=== PATIENT | female | born 1975 | race African-American/Black ===

== ENCOUNTER 2018-03-05 16:27 | Emergency (ER) | payer OTHER ==
[2018-03-05 16:32] VITALS: BP 153/85; PULSE 88; TEMP 98.4; BMI 37.8
[2018-03-05] MEDS ORDERED: KETOROLAC TROMETHAMINE 60 MG/2 ML VIAL IM ONE (16:37)
--- NOTE | 2018-03-05 16:44 | PDOC ---
Rapid Medical Evaluation Chief Complaint: Chest Pain Time Seen by Provider: 03/05/18 16:37 Medical Evaluation: Allergies Allergy/AdvReac Type Severity Reaction Status Date / Time No Known Allergies Allergy Verified 03/05/18 16:32 Vital Signs Temp Pulse Resp BP Pulse Ox 98.4 F 88 18 153/85 99 03/05/18 16:30 03/05/18 16:30 03/05/18 16:30 03/05/18 16:30 03/05/18 16:30 03/05/18 16:38 The patient complaining of: generalized headache x 2 weeks, no fever, neck pain , or visual changes, pt also states midsternal aching to center of chest x 2-3 days worsened with movement The patient on brief exam: tender to midsternal region at 4th rib, lcta, vss The patient was ordered for ekg, tylenol, labs The patient will proceed to the ED Discharge Disposition - Diagnosis Chest pain - Referrals - Patient Instructions - Post Discharge Activity
[2018-03-05] MEDS ORDERED: KETOROLAC TROMETHAMINE 60 MG/2 ML VIAL ONE (17:13)
--- NOTE | 2018-03-05 17:27 | PDOC ---
History of Present Illness - General Chief Complaint: Chest Pain Stated Complaint: CHEST PAIN Time Seen by Provider: 03/05/18 16:37 - History of Present Illness Initial Comments: 03/05/18 17:22 42 yo F with no significant pmh who p/w chest pain and dizziness. Patient reports 4 days of retrosternal, burning sensation, at rest, with intermittent, sharp radiation to left sided chest , resolving spontaneously prior to arrival ( lasting for seconds). Pain reproducible with touch, but not exacerbated with PO/food intake. Pain not relieved with OTC Ibuprofen 800 mg. Normal daily bowel movements, with absent BPR. Patient also endorses 1 week of intermittent "spinning sensation of the room, exacerbated by positional change while in bed, and resolves spontaneously. + Intermittent nightly cough. Patient denies ALMEIDA, LOC, tinnitus, hearing loss, vision change, N/V,back pain, F, C, cough, orthopnea, wheezing, SOB, urinary complaints, abdominal pain, diarrhea , constipation, BPR, lightheadedness, weakness, sensory changes. PMHx: as noted above. Denies GI f/u, endoscopy , or colonsocpy. Deniers h/o abdominal surgery. Denies ACS/AZ, cardiac stent placement, CABG, abnml stress testing. ROS: as noted SHx: Denies Etoh, tobacco, IVDA. Denies caffeine use. Allergies: NKDA Past History - Past Medical History Allergies/Adverse Reactions: Allergies Allergy/AdvReac Type Severity Reaction Status Date / Time No Known Allergies Allergy Verified 03/05/18 16:32 Home Medications: Ambulatory Orders Meclizine HCl [Antivert -] 12.5 mg PO TID #21 tablet 03/05/18 Ranitidine [Zantac -] 150 mg PO DAILY #21 tablet 03/05/18 COPD: No Other medical history: ARTHRITS - Suicide/Smoking/Psychosocial Hx Smoking History: Never smoked Hx Alcohol Use: Yes (OCCASIONALLY) Drug/Substance Use Hx: No Review of Systems - Review of Systems Comments:: 03/05/18 17:25 GENERAL/CONSTITUTIONAL: No fever or chills. No weakness. HEAD, EYES, EARS, NOSE AND THROAT: No change in vision. No ear pain or discharge. No sore throat. CARDIOVASCULAR: + chest pain. No shortness of breath RESPIRATORY: No cough, wheezing, or hemoptysis. GASTROINTESTINAL: No nausea, vomiting, diarrhea or constipation. GENITOURINARY: No dysuria, frequency, or change in urination. MUSCULOSKELETAL: No joint or muscle swelling or pain. No neck or back pain. SKIN: No rash NEUROLOGIC:+ Vertigo. No headache, loss of consciousness, or change in strength/ sensation. ENDOCRINE: No increased thirst. No abnormal weight change HEMATOLOGIC/LYMPHATIC: No anemia, easy bleeding, or history of blood clots. ALLERGIC/IMMUNOLOGIC: No hives or skin allergy. *Physical Exam - Vital Signs Last Vital Signs Temp Pulse Resp BP Pulse Ox 98.4 F 88 18 153/85 99 03/05/18 16:30 03/05/18 16:30 03/05/18 16:30 03/05/18 16:30 03/05/18 16:30 - Physical Exam Comments: 03/05/18 17:26 GENERAL: Awake, alert, and fully oriented, in no acute distress HEAD: No signs of trauma, normocephalic, atraumatic EYES: PERRLA, EOMI, sclera anicteric, conjunctiva clear ENT: Auricles normal inspection, hearing grossly normal, nares patent, oropharynx clear without exudates. Moist mucosa NECK: Normal ROM, supple, no lymphadenopathy, JVD, or masses LUNGS: No distress, speaks full sentences, clear to auscultation bilaterally HEART: Regular rate and rhythm, normal S1 and S2, no murmurs, rubs or gallops, peripheral pulses normal and equal bilaterally. ABDOMEN: + epigatsirc and mild RUQ ttp. Soft, normoactive bowel sounds. No guarding, no rebound. No masses. Neg CVA ttp. EXTREMITIES : Normal inspection, Normal range of motion, no edema. No clubbing or cyanosis. NEUROLOGICAL: + Reproducible "spinning sensation" with lateral head movement. Cranial nerves II through XII grossly intact. Normal speech, normal gait, no focal sensorimotor deficits. Neg nystagmus, and nml LAMBERTO,HTS. Absent dysmetria on FTN. SKIN: Warm, Dry, normal turgor, no rashes or lesions noted ED Treatment Course - LABORATORY CBC & Chemistry Diagram: 03/05/18 17:00 03/05/18 17:00 Medical Decision Making - Medical Decision Making 03/05/18 17:56 42 yo F with no significant pmh who p/w epigastric pain and dizziness "spinning sensation". VSS, AF. ACS/AZ r/o. PERC Neg PE. + Epigastirc and RUQ ttp. Possible esophagitis, gastritis, biliary pathology. Low suspicion PUD, AAA, urinary pathiology, appendicitis, colitis, diverticulitis. Patient also with reproducible "dizziness" described as spinning on lateral head movement, otherwise neurologically intact. Likely peripheral vs. central vertigo. Likely BPPV. Ed Course: CBC, CMP, Lipase, Cardiac, HCG EKG, CXR Meclizine, Maloox, Ranitidine, Carafate. 03/05/18 18:56 CBC,CMP: Unremarkable UA: Neg 03/05/18 18:59 Meclizine and ranitidine sent to pharmacy Symptoms improved 03/05/18 19:41 EKG: NSR with absent MOOSE, STD,or TWI. Normal axis and interval duration. 03/05/18 20:41 Bedside RUQ U/S: Unremarkable. No acute choleyctsitis stable for d/c with return precautions. advised to f/u with PMD and GI *DC/Admit/Observation/Transfer Diagnosis at time of Disposition: Vertigo, Epigastric pain Chest pain Qualifiers: Chest pain type: unspecified Qualified Code(s): R07.9 - Chest pain, unspecified - Discharge Dispostion Condition at time of disposition: Stable Decision to Admit order: No - Prescriptions Prescriptions: Meclizine HCl [Antivert -] 12.5 mg PO TID #21 tablet Ranitidine [Zantac -] 150 mg PO DAILY #21 tablet - Referrals Referrals: Sariah England [Primary Care Provider] - James Ewing MD [Staff Physician] - - Patient Instructions Printed Discharge Instructions: Benign Paroxysmal Positional Vertigo, DI for Atypical Chest Pain Additional Instructions: Please return to the emergency department with any new or worsening symptoms or concerns. Please follow up with your primary care physician within 72 hours. Please follow up with gastroenterology within one week. Please take pepcid daily and meclizine as needed for symptoms. - Post Discharge Activity - Attestations Physician Attestion: 03/05/18 17:27 I attest to the information provided in this note.
[2018-03-05 17:42] LABS: BASO % 0.9 % (0-2.0); EOS % 2.6 % (0-4.5); HEMATOCRIT 41.9 % (32.4-45.2); HEMOGLOBIN 13.4 GM/dL (10.7-15.3); MCH 26.6 pg (25.7-33.7); MEAN CELL VOLUME 83.3 fl (80-96); MONO % 7.8 % (3.8-10.2); NEUT % 64.7 % (42.8-82.8); PLATELET COUNT 281 K/MM3 (134-434); RBC 5.03 M/mm3 (3.60-5.2); RDW 14.4 % (11.6-15.6); WHITE BLOOD COUNT 7.7 K/mm3 (4.0-10.0)
[2018-03-05] MEDS ORDERED: RANITIDINE HCL 150 MG TABLET (FP) PO ONE (17:44)
[2018-03-05] MEDS ORDERED: SUCRALFATE 1 GM TABLET (FP) PO ONE (17:44)
[2018-03-05] MEDS ORDERED: MECLIZINE HCL 25 MG TABLET (FP) PO ONE (17:44)
[2018-03-05] MEDS ORDERED: MAG HYDROX/AL HYDROX/SIMETH 30 ML UNIT-DOSE CUP PO ONE (17:44)
[2018-03-05] MEDS ORDERED: MECLIZINE HCL 25 MG TABLET (FP) ONE (17:50)
[2018-03-05] MEDS ORDERED: RANITIDINE HCL 150 MG TABLET (FP) ONE (17:50)
[2018-03-05 17:51] LABS: ALBUMIN 3.8 g/dl (3.4-5.0); ALK PHOS 50 U/L (45-117); ANION GAP 7 MMOL/L (8-16); BILIRUBIN,TOTAL 0.4 mg/dL (0.2-1.0); BLOOD UREA NITROGEN 13 mg/dL (7-18); CALCIUM 9.5 mg/dL (8.5-10.1); CHLORIDE 105 mmol/L (98-107); CO2 29 mmol/L (21-32); CREATININE 0.7 mg/dL (0.55-1.02); GLUCOSE,RANDOM 84 mg/dL (74-106); POTASSIUM 4.1 mmol/L (3.5-5.1); SGOT/AST 15 U/L (15-37); SGPT/ALT 25 U/L (12-78); SODIUM 141 mmol/L (136-145); TOT PROT 8.2 g/dl (6.4-8.2)
[2018-03-05] MEDS ORDERED: MAG HYDROX/AL HYDROX/SIMETH 30 ML UNIT-DOSE CUP ONE (17:51)
[2018-03-05] MEDS ORDERED: SUCRALFATE 1 GM TABLET (FP) ONE (17:51)
--- NOTE | 2018-03-05 18:08 | PDOC ---
Attending Attestation - HPI HPI: 03/05/18 18:53 Patient is a 42 year old female with no significant past medical history who presents to the ED with complaints of chest pain that she states began earlier this week. Patient reports experiencing chest pain that she states is a midsternal non radiating burning pain. She reports experiencing associated symptoms of dizziness stating it feels like the room spinning that she states is increased at night when she sleeps. Denies nausea, vomiting. Denies contact with sick individuals, out of state travelling. Denies dysuria, hematuria. Denies constipation, diarrhea. Denies any other symptoms. Allergies: None Social history: Lives with son. No alcohol. No illicit drugs. No smoking. Surgical history: None PMD: Dr. England - Physicial Exam PE: 03/05/18 18:53 GENERAL: Awake, alert, and fully oriented, in no acute distress HEAD: No signs of trauma EYES: PERRLA, EOMI, sclera anicteric, conjunctiva clear ENT: Auricles normal inspection, hearing grossly normal, nares patent, oropharynx clear without exudates. Moist mucosa NECK: Normal ROM, supple, no lymphadenopathy, JVD, or masses LUNGS: Breath sounds equal, clear to auscultation bilaterally. No wheezes, and no crackles HEART: +Mild epigastric pain to palpation. +chest wall pain to palpation. Regular rate and rhythm, normal S1 and S2, no murmurs, rubs or gallops ABDOMEN: +Right upper quadrant pain. Soft, normoactive bowel sounds. No guarding, no rebound. No masses EXTREMITIES: Normal range of motion, no edema. No clubbing or cyanosis. No cords, erythema, or tenderness NEUROLOGICAL: Cranial nerves II through XII grossly intact. Normal speech, normal gait SKIN: Warm, Dry, normal turgor, no rashes or lesions noted. <Cole Howard - Last Filed: 03/05/18 18:53> - Resident Resident Name: Fransisco Trejo - ED Attending Attestation I have performed the following: I have examined & evaluated the patient, The case was reviewed & discussed with the resident, I agree w/resident's findings & plan, Exceptions are as noted - Medical Decision Making 03/05/18 18:06 I, Dr. Flower Rendon, DO, attest that this document has been prepared under my direction and personally reviewed by me in its entirety. I further attest, that it accurately reflects all work, treatment, procedures and medical decision -making performed by me. 03/05/18 18:06 a/p: 42yo female with burning sensation from epigastric region to chest, also with vertigo this week -no f/c -no n/v -has been eating and drinking -concern for peripheral vertigo and for gastritis -will send labs, ekg, cxr, bedside RUQ ultrasound -will medicate and reassess -pt is nontoxic in appearance -anterior chest wall ttp -no rashes -nof/c -ambulates with a steady gait -will monitor, medicate and reassess 03/05/18 19:51 cxr clear 03/05/18 20:46 RUQ ultrasound without gallstones, no gb wall thickening, no dilated cbd. neg sono murphykwame 03/05/18 20:47 pt feeling better, stable for d/c to home <Flower Rendon - Last Filed: 03/05/18 20:47> Heart Score/ECG Review - ECG Intrepretation Comment:: 03/05/18 18:06 sinus at 78, nl axis, nl interval, no acute st/t wave findings <Flower Rendon - Last Filed: 03/05/18 20:47>
--- NOTE | 2018-03-09 14:12 | EKG ---
Test Reason : Blood Pressure : / mmHG Vent. Rate : 078 BPM Atrial Rate : 078 BPM P-R Int : 140 ms QRS Dur : 078 ms QT Int : 348 ms P-R-T Axes : 056 052 048 degrees QTc Int : 396 ms NORMAL SINUS RHYTHM NORMAL ECG NO PREVIOUS ECGS AVAILABLE Confirmed by KATI DEGROOT MD ([id number]) on 03/09/2018 2:11:37 PM Referred By: Confirmed By:KATI DEGROOT MD
== END 2018-03-05 20:56 | disposition home or self-care (01) ==
LOC: JER 16:27
PROC: 3E0233Z Introduction of Anti-inflammatory into Muscle, Percutaneous Approach (ICD-10-PCS; principal; 2018-03-05)
DX: R07.89 Other chest pain (principal); R10.13 Epigastric pain; R42 Dizziness and giddiness
CPT/HCPCS: 36415; 71045-TC-FY; 80053; 82550; 83690; 84484; 84703; 85025; 93005; 93010; 99283-25

== ENCOUNTER 2020-12-10 23:47 | Emergency (ER) | payer OTHER ==
[2020-12-10 23:59] VITALS: BP 141/84; PULSE 100; TEMP 99.1; BMI 35.9
[2020-12-11] MEDS ORDERED: MAG HYDROX/AL HYDROX/SIMETH 30 ML UNIT-DOSE CUP PO ONE (00:16)
[2020-12-11] MEDS ORDERED: FAMOTIDINE 20 MG/50 ML IVPB 20 MG/50 ML MG IVPB ONE ×2 (00:16→00:20)
[2020-12-11] MEDS ORDERED: ONDANSETRON 4 MG/2 ML VIAL IVPUSH ONE (00:16)
[2020-12-11] MEDS ORDERED: SODIUM CHLORIDE 0.9% 500 ML INFUS.BAG IV ONE ×2 (00:16→02:21)
[2020-12-11] MEDS ORDERED: ONDANSETRON 4 MG/2 ML VIAL ONE ×2 (00:20→00:23)
[2020-12-11] MEDS ORDERED: MAG HYDROX/AL HYDROX/SIMETH 30 ML UNIT-DOSE CUP ONE (00:20)
[2020-12-11 00:47] LABS: BASO % 0.4 % (0-2.0); HEMATOCRIT 43.9 % (32.4-45.2); HEMOGLOBIN 14.6 GM/dL (10.7-15.3); LYMPH % 30.3 % (8-40); MCH 27.4 pg (25.7-33.7); MCHC 33.3 g/dl (32.0-36.0); MEAN CELL VOLUME 82.2 fl (80-96); MEAN PLT VOLUME 10.5 fl (7.5-11.1); MONO % 6.6 % (3.8-10.2); NEUT % 62.7 % (42.8-82.8); PLATELET COUNT 175 K/MM3 (134-434); RBC 5.34 M/mm3 (3.60-5.2); RDW 14.3 % (11.6-15.6); WHITE BLOOD COUNT 3.5 K/mm3 (4.0-10.0)
[2020-12-11 01:07] LABS: CHLORIDE 97 mmol/L (98-107); SODIUM 133 mmol/L (136-145)
[2020-12-11 01:09] LABS: ALBUMIN 2.6 g/dl (3.4-5.0)
[2020-12-11 01:10] LABS: ANION GAP 8 MMOL/L (8-16); CALCIUM 7.7 mg/dL (8.5-10.1); CO2 28 mmol/L (21-32); GLUCOSE,RANDOM 118 mg/dL (74-106); MAGNESIUM 1.8 mg/dL (1.8-2.4)
[2020-12-11 01:12] LABS: LIPASE 95 U/L (73-393)
[2020-12-11] MEDS ORDERED: POTASSIUM CHLORIDE TABS 20 MEQ TABLET.ER (FP) PO ONE ×2 (01:12→01:21)
[2020-12-11 01:13] LABS: SGOT/AST 99 U/L (15-37); SGPT/ALT 69 U/L (13-61)
[2020-12-11 01:16] LABS: ALK PHOS 51 U/L (45-117); BILIRUBIN,TOTAL 0.4 mg/dL (0.2-1); TOT PROT 7.1 g/dl (6.4-8.2)
[2020-12-11] MEDS ORDERED: ACETAMINOPHEN 1000 MG/100 ML VIAL (NON FORMULARY) IVPB ONE (02:20)
[2020-12-11] MEDS ORDERED: ACETAMINOPHEN INJECTION 100 ML IVPB ONE (02:45)
== END 2020-12-11 05:05 | disposition home or self-care (01) ==
LOC: JER 23:47
PROC: 3E0333Z Introduction of Anti-inflammatory into Peripheral Vein, Percutaneous Approach (ICD-10-PCS; principal; 2020-12-10)
PROC: 3E033GC Introduction of Other Therapeutic Substance into Peripheral Vein, Percutaneous Approach (ICD-10-PCS; 2020-12-10)
PROC: 3E033GC Introduction of Other Therapeutic Substance into Peripheral Vein, Percutaneous Approach (ICD-10-PCS; 2020-12-10)
DX: R10.13 Epigastric pain (principal)
CPT/HCPCS: 36415; 71045-TC-FY; 80053; 83690; 83735; 84484; 84703; 85025; 93005; 93010; 99285-25; C9803; J0131; U0003; U0005

== ENCOUNTER 2020-12-12 20:14 | Inpatient (IN) | payer OTHER ==
[2020-12-12] MEDS ORDERED: FAMOTIDINE 20 MG/50 ML IVPB 20 MG/50 ML MG IVPB ONE ×2 (20:44→20:51)
[2020-12-12] MEDS ORDERED: ONDANSETRON 4 MG/2 ML VIAL IVPUSH ONE (20:44)
[2020-12-12] MEDS ORDERED: SODIUM CHLORIDE 0.9% 500 ML INFUS.BAG IV ONE ×2 (20:44→21:33)
[2020-12-12] MEDS ORDERED: ONDANSETRON 4 MG/2 ML VIAL ONE (20:51)
[2020-12-12 21:18] LABS: BASO % 0.2 % (0-2.0); HEMATOCRIT 50.2 % (32.4-45.2); HEMOGLOBIN 16.5 GM/dL (10.7-15.3); MCH 27.2 pg (25.7-33.7); MCHC 32.8 g/dl (32.0-36.0); MEAN CELL VOLUME 82.9 fl (80-96); MEAN PLT VOLUME 9.7 fl (7.5-11.1); MONO % 11.5 % (3.8-10.2); NEUT % 67.3 % (42.8-82.8); PLATELET COUNT 244 K/MM3 (134-434); RBC 6.05 M/mm3 (3.60-5.2); RDW 14.1 % (11.6-15.6)
[2020-12-12 21:23] LABS: CHLORIDE 99 mmol/L (98-107); SODIUM 132 mmol/L (136-145)
[2020-12-12 21:25] LABS: CALCIUM 7.2 mg/dL (8.5-10.1)
[2020-12-12 21:26] LABS: ANION GAP 9 MMOL/L (8-16); BLOOD UREA NITROGEN 22.2 mg/dL (7-18); CO2 24 mmol/L (21-32); GLUCOSE,RANDOM 116 mg/dL (74-106); LIPASE 125 U/L (73-393)
[2020-12-12 21:28] LABS: SGPT/ALT 64 U/L (13-61)
[2020-12-12 21:29] LABS: CREATININE 2.3 mg/dL (0.55-1.3); SGOT/AST 182 U/L (15-37)
[2020-12-12 21:30] LABS: BILIRUBIN,TOTAL 0.2 mg/dL (0.2-1); TOT PROT 5.5 g/dl (6.4-8.2)
[2020-12-12] MEDS ORDERED: LACTATED RINGERS SOLUTION 1000 ML INFUS.BAG IV ONE (21:30)
[2020-12-12 21:31] LABS: ALK PHOS 59 U/L (45-117)
[2020-12-12 22:58] LABS: ALBUMIN 1.1 g/dl (3.4-5.0)
[2020-12-12 23:40] LABS: EPI CELLS >36 /uL (0-25.1); HYALINE CASTS 8 /uL (0-3.1); URINE APPEARANCE CLOUDY; URINE BACTERIA 429 /uL (0-1359); URINE BILIRUBIN NEGATIVE (NEGATIVE); URINE COLOR YELLOW; URINE GLUCOSE (UA) TRACE (NEGATIVE); URINE KETONE TRACE (NEGATIVE); URINE LEUK ESTERASE NEGATIVE (NEGATIVE); URINE NITRITE NEGATIVE (NEGATIVE); URINE PROTEIN 4+ (NEGATIVE); URINE RBC 13 /uL (0-23.9); URINE WBC 41 /uL (0-25.8)
[2020-12-13] MEDS ORDERED: morphine CARPU-JECT 2 MG/1 ML DISP.SYRIN IVPUSH PRN (01:25)
[2020-12-13] MEDS ORDERED: SODIUM CHLORIDE 1,000 ML IV SCH (01:30)
[2020-12-13] MEDS ORDERED: ALBUTEROL SO4 HFA INHALER IH PRN (02:10)
[2020-12-13] MEDS ORDERED: ONDANSETRON 4 MG/2 ML VIAL IVPUSH PRN (02:15)
[2020-12-13] MEDS: MORPHINE SULFATE 2 MG/ML VIAL IVPUSH PRN ×3 (02:23→18:30)
[2020-12-13 03:25] LABS: EPI CELLS >36 /uL (0-25.1); HYALINE CASTS 15 /uL (0-3.1); URINE APPEARANCE TURBID; URINE BACTERIA 1192 /uL (0-1359); URINE BILIRUBIN NEGATIVE (NEGATIVE); URINE COLOR DK YELLOW; URINE GLUCOSE (UA) TRACE (NEGATIVE); URINE KETONE TRACE (NEGATIVE); URINE LEUK ESTERASE NEGATIVE (NEGATIVE); URINE NITRITE NEGATIVE (NEGATIVE); URINE PROTEIN 4+ (NEGATIVE); URINE RBC 13 /uL (0-23.9)
[2020-12-13 05:16] LABS: URINE WBC 93.5 /uL (0-25.8)
[2020-12-13] MEDS: HEPARIN NA (PORCINE) 5,000 UNITS/ML 1ML VIAL SQ SCH ×2 (06:13→14:25)
[2020-12-13 06:21] LABS: HEMOGLOBIN 15.9 GM/dL (10.7-15.3); MCH 27.2 pg (25.7-33.7); MCHC 33.2 g/dl (32.0-36.0); MEAN CELL VOLUME 82.1 fl (80-96); MEAN PLT VOLUME 9.4 fl (7.5-11.1); PLATELET COUNT 191 K/MM3 (134-434); RBC 5.85 M/mm3 (3.60-5.2); RDW 14.5 % (11.6-15.6); WHITE BLOOD COUNT 3.9 K/mm3 (4.0-10.0)
[2020-12-13 06:33] LABS: CHLORIDE 104 mmol/L (98-107); SODIUM 136 mmol/L (136-145)
[2020-12-13 06:36] LABS: ALBUMIN 1.2 g/dl (3.4-5.0); ANION GAP 8 MMOL/L (8-16); BLOOD UREA NITROGEN 26.5 mg/dL (7-18); CO2 24 mmol/L (21-32); GLUCOSE,RANDOM 100 mg/dL (74-106)
[2020-12-13 06:38] LABS: PHOSPHOROUS 3.8 mg/dL (2.5-4.9)
[2020-12-13 06:39] LABS: CREATININE 2.4 mg/dL (0.55-1.3); SGOT/AST 187 U/L (15-37); SGPT/ALT 72 U/L (13-61)
[2020-12-13 06:40] LABS: BILIRUBIN,TOTAL 0.2 mg/dL (0.2-1); TOT PROT 5.2 g/dl (6.4-8.2)
[2020-12-13 06:41] LABS: ALK PHOS 53 U/L (45-117)
[2020-12-13 06:43] LABS: CALCIUM 6.6 mg/dL (8.5-10.1)
[2020-12-13 15:26] LABS: BASO % 0.3 % (0-2.0); HEMATOCRIT 44.2 % (32.4-45.2); HEMOGLOBIN 14.6 GM/dL (10.7-15.3); LYMPH % 26.4 % (8-40); MCH 27.3 pg (25.7-33.7); MCHC 33.2 g/dl (32.0-36.0); MEAN CELL VOLUME 82.3 fl (80-96); MEAN PLT VOLUME 9.1 fl (7.5-11.1); MONO % 12.4 % (3.8-10.2); NEUT % 60.9 % (42.8-82.8); PLATELET COUNT 201 K/MM3 (134-434); RBC 5.37 M/mm3 (3.60-5.2); RDW 14.6 % (11.6-15.6); WHITE BLOOD COUNT 4.2 K/mm3 (4.0-10.0)
[2020-12-13 15:43] LABS: CHLORIDE 104 mmol/L (98-107); SODIUM 136 mmol/L (136-145)
[2020-12-13] MEDS ORDERED: REMDESIVIR 200 MG in SODIUM CHLORIDE 250 ML IVPB ONE (16:00)
[2020-12-13 16:09] LABS: ANION GAP 8 MMOL/L (8-16); BLOOD UREA NITROGEN 31.7 mg/dL (7-18); CO2 23 mmol/L (21-32)
[2020-12-13 16:10] LABS: GLUCOSE,RANDOM 99 mg/dL (74-106)
[2020-12-13 16:12] LABS: SGPT/ALT 73 U/L (13-61)
[2020-12-13 16:13] LABS: CREATININE 2.9 mg/dL (0.55-1.3); SGOT/AST 173 U/L (15-37)
[2020-12-13 16:14] LABS: BILIRUBIN,TOTAL 0.3 mg/dL (0.2-1); TOT PROT 4.5 g/dl (6.4-8.2)
[2020-12-13 16:15] LABS: ALK PHOS 46 U/L (45-117)
[2020-12-13 16:27] LABS: CALCIUM 6.6 mg/dL (8.5-10.1)
[2020-12-13] MEDS: DEXAMETHASONE SOD PHOSPHATE 10 MG/1 ML VIAL IVPUSH SCH (16:36)
[2020-12-13] MEDS: SODIUM CHLORIDE 1,000 ML IV SCH (16:37)
[2020-12-13 16:54] LABS: EPI CELLS >36 /uL (0-25.1); HYALINE CASTS 28 /uL (0-3.1); URINE APPEARANCE TURBID; URINE BACTERIA 44 /uL (0-1359); URINE BILIRUBIN NEGATIVE (NEGATIVE); URINE COLOR YELLOW; URINE GLUCOSE (UA) NEGATIVE (NEGATIVE); URINE KETONE TRACE (NEGATIVE); URINE LEUK ESTERASE NEGATIVE (NEGATIVE); URINE NITRITE NEGATIVE (NEGATIVE); URINE PROTEIN 4+ (NEGATIVE); URINE RBC 60 /uL (0-23.9)
[2020-12-13 17:40] LABS: URINE WBC 160.5 /uL (0-25.8)
[2020-12-13] MEDS ORDERED: ENOXAPARIN NA (PORCINE) 60 MG/0.6 ML DISP.SYRIN SQ ONE (21:59)
[2020-12-13] MEDS ORDERED: ENOXAPARIN NA (PORCINE) 80 MG/0.8 ML DISP.SYRIN SQ ONE (21:59)
[2020-12-13] MEDS ORDERED: ENOXAPARIN 80 MG, ENOXAPARIN 60 MG SQ SCH (22:00)
[2020-12-13] MEDS ORDERED: ENOXAPARIN NA (PORCINE) 120 MG/0.8 ML DISP.SYRIN SQ SCH ×3 (22:00)
[2020-12-14] MEDS: MORPHINE SULFATE 2 MG/ML VIAL IVPUSH PRN ×2 (06:46→20:10)
[2020-12-14 08:13] LABS: MAGNESIUM 2.4 mg/dL (1.8-2.4)
[2020-12-14 08:16] LABS: PHOSPHOROUS 4.6 mg/dL (2.5-4.9)
[2020-12-14] MEDS ORDERED: ENOXAPARIN NA (PORCINE) 60 MG/0.6 ML DISP.SYRIN SQ ONE ×2 (09:31→09:32)
[2020-12-14] MEDS ORDERED: ENOXAPARIN NA (PORCINE) 80 MG/0.8 ML DISP.SYRIN SQ ONE ×2 (09:32)
[2020-12-14] MEDS: DEXAMETHASONE SOD PHOSPHATE 10 MG/1 ML VIAL IVPUSH SCH (09:36)
[2020-12-14] MEDS ORDERED: ENOXAPARIN 80 MG, ENOXAPARIN 60 MG SQ SCH (10:00)
[2020-12-14] MEDS: FAMOTIDINE 20 MG TABLET PO SCH ×2 (10:33→21:39)
[2020-12-14] MEDS ORDERED: PT OWN MED DRAWER 7, Y5N ONE (15:36)
[2020-12-14] MEDS: REMDESIVIR 100 MG in SODIUM CHLORIDE 250 ML IVPB SCH (15:39)
[2020-12-14] MEDS: PANTOPRAZOLE 40 MG TABLET PO SCH (16:20)
[2020-12-14] MEDS: SODIUM CHLORIDE 1,000 ML IV SCH (16:26)
[2020-12-14] MEDS: LACTATED RINGERS SOLUTION 1,000 ML/1,000 ML INFUS.BAG IV SCH (16:42)
[2020-12-15 08:36] LABS: BASO % 0.3 % (0-2.0); HEMATOCRIT 42.6 % (32.4-45.2); HEMOGLOBIN 13.9 GM/dL (10.7-15.3); LYMPH % 15.4 % (8-40); MCHC 32.5 g/dl (32.0-36.0); MEAN CELL VOLUME 82.9 fl (80-96); MEAN PLT VOLUME 8.6 fl (7.5-11.1); MONO % 16.6 % (3.8-10.2); NEUT % 67.7 % (42.8-82.8); PLATELET COUNT 281 K/MM3 (134-434); RBC 5.14 M/mm3 (3.60-5.2); RDW 14.4 % (11.6-15.6)
[2020-12-15 08:56] LABS: ALBUMIN 1.1 g/dl (3.4-5.0)
[2020-12-15 08:59] LABS: CREATININE 4.4 mg/dL (0.55-1.3)
[2020-12-15 09:00] LABS: BILIRUBIN,TOTAL 0.2 mg/dL (0.2-1); TOT PROT 4.7 g/dl (6.4-8.2)
[2020-12-15 09:02] LABS: BLOOD UREA NITROGEN 66.3 mg/dL (7-18)
[2020-12-15] MEDS ORDERED: ENOXAPARIN NA (PORCINE) 60 MG/0.6 ML DISP.SYRIN SQ ONE (09:54)
[2020-12-15] MEDS ORDERED: ENOXAPARIN NA (PORCINE) 80 MG/0.8 ML DISP.SYRIN SQ ONE (09:54)
[2020-12-15] MEDS: DEXAMETHASONE SOD PHOSPHATE 10 MG/1 ML VIAL IVPUSH SCH (09:56)
[2020-12-15] MEDS: PANTOPRAZOLE 40 MG TABLET PO SCH (09:57)
[2020-12-15] MEDS: ACETAMINOPHEN 325 MG TABLET (FP) PO PRN (09:57)
[2020-12-15] MEDS: FAMOTIDINE 20 MG TABLET PO SCH ×2 (09:57→21:40)
[2020-12-15] MEDS: ENOXAPARIN 80 MG, ENOXAPARIN 60 MG SQ SCH (09:57)
[2020-12-15 13:11] LABS: HEP B CORE AB, TOT Negative (Negative)
[2020-12-15] MEDS: REMDESIVIR 100 MG in SODIUM CHLORIDE 250 ML IVPB SCH (15:26)
[2020-12-15] MEDS: SIMETHICONE 80 MG TAB.CHEW (FP) PO PRN (17:32)
[2020-12-15] MEDS: LACTATED RINGERS SOLUTION 1,000 ML/1,000 ML INFUS.BAG IV SCH ×2 (17:35→21:41)
[2020-12-16] MEDS ORDERED: ENOXAPARIN NA (PORCINE) 60 MG/0.6 ML DISP.SYRIN SQ ONE ×2 (08:32→09:04)
[2020-12-16] MEDS ORDERED: ENOXAPARIN NA (PORCINE) 80 MG/0.8 ML DISP.SYRIN SQ ONE ×2 (08:32→09:04)
[2020-12-16 08:50] LABS: BASO % 0.2 % (0-2.0); HEMATOCRIT 39.9 % (32.4-45.2); HEMOGLOBIN 13.1 GM/dL (10.7-15.3); MCH 26.6 pg (25.7-33.7); MCHC 32.8 g/dl (32.0-36.0); MEAN PLT VOLUME 8.3 fl (7.5-11.1); MONO % 9.8 % (3.8-10.2); PLATELET COUNT 281 K/MM3 (134-434); RBC 4.92 M/mm3 (3.60-5.2); RDW 14.5 % (11.6-15.6); WHITE BLOOD COUNT 5.2 K/mm3 (4.0-10.0)
[2020-12-16] MEDS: FAMOTIDINE 20 MG TABLET PO SCH ×2 (09:00→21:00)
[2020-12-16] MEDS: DEXAMETHASONE SOD PHOSPHATE 10 MG/1 ML VIAL IVPUSH SCH (09:00)
[2020-12-16] MEDS: PANTOPRAZOLE 40 MG TABLET PO SCH (09:01)
[2020-12-16] MEDS: ENOXAPARIN 80 MG, ENOXAPARIN 60 MG SQ SCH (09:06)
[2020-12-16 09:08] LABS: ALBUMIN 1.2 g/dl (3.4-5.0); CALCIUM 7.3 mg/dL (8.5-10.1)
[2020-12-16 09:09] LABS: BLOOD UREA NITROGEN 74.6 mg/dL (7-18); MAGNESIUM 2.9 mg/dL (1.8-2.4)
[2020-12-16 09:11] LABS: CREATININE 4.7 mg/dL (0.55-1.3)
[2020-12-16 09:12] LABS: PHOSPHOROUS 5.1 mg/dL (2.5-4.9)
[2020-12-16 09:13] LABS: BILIRUBIN,TOTAL 0.2 mg/dL (0.2-1); TOT PROT 4.5 g/dl (6.4-8.2)
[2020-12-16] MEDS: LACTATED RINGERS SOLUTION 1,000 ML/1,000 ML INFUS.BAG IV SCH (19:44)
[2020-12-17] MEDS: SIMETHICONE 80 MG TAB.CHEW (FP) PO PRN (05:28)
[2020-12-17 07:37] LABS: BASO % 0.2 % (0-2.0); HEMATOCRIT 37.2 % (32.4-45.2); HEMOGLOBIN 11.9 GM/dL (10.7-15.3); LYMPH % 2.7 % (8-40); MCHC 31.9 g/dl (32.0-36.0); MEAN CELL VOLUME 81.6 fl (80-96); MEAN PLT VOLUME 8.5 fl (7.5-11.1); MONO % 4.1 % (3.8-10.2); PLATELET COUNT 230 K/MM3 (134-434); RBC 4.57 M/mm3 (3.60-5.2); RDW 14.3 % (11.6-15.6); WHITE BLOOD COUNT 7.8 K/mm3 (4.0-10.0)
[2020-12-17 08:23] LABS: CALCIUM 7.1 mg/dL (8.5-10.1)
[2020-12-17 08:24] LABS: ALBUMIN 1.1 g/dl (3.4-5.0); BLOOD UREA NITROGEN 86.6 mg/dL (7-18)
[2020-12-17 08:27] LABS: CREATININE 5.2 mg/dL (0.55-1.3)
[2020-12-17 08:28] LABS: BILIRUBIN,TOTAL 0.5 mg/dL (0.2-1)
[2020-12-17 08:29] LABS: TOT PROT 4.1 g/dl (6.4-8.2)
[2020-12-17] MEDS: DEXAMETHASONE SOD PHOSPHATE 10 MG/1 ML VIAL IVPUSH SCH (09:20)
[2020-12-17] MEDS: FAMOTIDINE 20 MG TABLET PO SCH ×2 (09:20→21:02)
[2020-12-17] MEDS: PANTOPRAZOLE 40 MG TABLET PO SCH (09:20)
[2020-12-17 11:41] LABS: ANISOCYTOSIS 1+; MACROCYTOSIS 0; PLATELET ESTIMATE NORMAL
[2020-12-17] MEDS: LACTATED RINGERS SOLUTION 1,000 ML/1,000 ML INFUS.BAG IV SCH (17:34)
[2020-12-18 08:54] LABS: INR 1.14 (0.83-1.09); PROTHROMBIN TIME (PATIENT) 13.7 SEC (9.7-13.0)
[2020-12-18 08:57] LABS: ACTIVATED PTT 31.8 SECONDS (25.2-36.5)
[2020-12-18 09:02] LABS: HEMATOCRIT 38.3 % (32.4-45.2); HEMOGLOBIN 12.5 GM/dL (10.7-15.3); MCH 26.4 pg (25.7-33.7); MCHC 32.6 g/dl (32.0-36.0); PLATELET COUNT 201 K/MM3 (134-434); RBC 4.73 M/mm3 (3.60-5.2); RDW 14.7 % (11.6-15.6); WHITE BLOOD COUNT 8.7 K/mm3 (4.0-10.0)
[2020-12-18 09:17] LABS: CALCIUM 7.4 mg/dL (8.5-10.1)
[2020-12-18 09:18] LABS: BLOOD UREA NITROGEN 82.6 mg/dL (7-18)
[2020-12-18] MEDS: DEXAMETHASONE SOD PHOSPHATE 10 MG/1 ML VIAL IVPUSH SCH (09:19)
[2020-12-18] MEDS: FAMOTIDINE 20 MG TABLET PO SCH ×2 (09:27→21:21)
[2020-12-18 16:11] LABS: ATYPICAL pANCA <1:20 titer (Neg:<1:20); C-ANCA <1:20 titer (Neg:<1:20)
[2020-12-18] MEDS: LACTATED RINGERS SOLUTION 1,000 ML/1,000 ML INFUS.BAG IV SCH (21:21)
[2020-12-19 07:51] LABS: BASO % 0.2 % (0-2.0); HEMATOCRIT 38.1 % (32.4-45.2); HEMOGLOBIN 12.5 GM/dL (10.7-15.3); LYMPH % 7.1 % (8-40); MCH 26.5 pg (25.7-33.7); MCHC 32.8 g/dl (32.0-36.0); MEAN CELL VOLUME 80.7 fl (80-96); MEAN PLT VOLUME 8.6 fl (7.5-11.1); MONO % 9.2 % (3.8-10.2); NEUT % 83.5 % (42.8-82.8); PLATELET COUNT 190 10^3/uL (134-434); RBC 4.72 M/mm3 (3.60-5.2); RDW 14.4 % (11.6-15.6); WHITE BLOOD COUNT 10.9 K/mm3 (4.0-10.0)
[2020-12-19 08:06] LABS: CALCIUM 7.4 mg/dL (8.5-10.1)
[2020-12-19 08:07] LABS: ALBUMIN 1.3 g/dl (3.4-5.0); BLOOD UREA NITROGEN 79.7 mg/dL (7-18)
[2020-12-19 08:10] LABS: CREATININE 4.6 mg/dL (0.55-1.3)
[2020-12-19 08:11] LABS: BILIRUBIN,TOTAL 0.5 mg/dL (0.2-1); TOT PROT 4.6 g/dl (6.4-8.2)
[2020-12-19 09:35] LABS: ANISOCYTOSIS 0; HELMET CELLS 0; HOWELL-JOLLY BODIES 0; MACROCYTOSIS 0; OVALOCYTE 0; PLATELET ESTIMATE NORMAL; ROULEAU 0; SICKELED CELLS 0; TARGET CELLS 0; TEAR DROP CELLS 0; TOXIC GRANULATION 0
[2020-12-19] MEDS: DEXAMETHASONE SOD PHOSPHATE 10 MG/1 ML VIAL IVPUSH SCH (10:00)
[2020-12-19] MEDS: FAMOTIDINE 20 MG TABLET PO SCH ×2 (10:00→21:45)
[2020-12-19] MEDS: LACTATED RINGERS SOLUTION 1,000 ML/1,000 ML INFUS.BAG IV SCH ×2 (10:02→19:58)
[2020-12-19 13:50] VITALS: BMI 43.2
[2020-12-19] MEDS: SIMETHICONE 80 MG TAB.CHEW (FP) PO PRN (19:58)
[2020-12-19] MEDS: HEPARIN NA (PORCINE) 5,000 UNITS/ML 1ML VIAL SQ SCH (21:44)
[2020-12-20] MEDS: AMINO ACIDS/PROTEIN HYDROLYS 30 ML LIQUID.PKT PO SCH (07:41)
[2020-12-20 08:19] LABS: ALBUMIN 1.4 g/dl (3.4-5.0); CALCIUM 7.8 mg/dL (8.5-10.1)
[2020-12-20 08:20] LABS: BLOOD UREA NITROGEN 70.2 mg/dL (7-18)
[2020-12-20 08:22] LABS: CREATININE 4.2 mg/dL (0.55-1.3)
[2020-12-20 08:24] LABS: BILIRUBIN,TOTAL 0.2 mg/dL (0.2-1); TOT PROT 4.8 g/dl (6.4-8.2)
[2020-12-20] MEDS: DEXAMETHASONE SOD PHOSPHATE 10 MG/1 ML VIAL IVPUSH SCH (09:25)
[2020-12-20] MEDS: HEPARIN NA (PORCINE) 5,000 UNITS/ML 1ML VIAL SQ SCH ×2 (09:25→22:19)
[2020-12-20] MEDS: FAMOTIDINE 20 MG TABLET PO SCH ×2 (09:26→22:19)
[2020-12-20] MEDS: LACTATED RINGERS SOLUTION 1,000 ML/1,000 ML INFUS.BAG IV SCH (12:15)
[2020-12-20] MEDS ORDERED: LACTATED RINGERS SOLUTION 1,000 ML/1,000 ML INFUS.BAG IV SCH (12:31)
[2020-12-21] MEDS: DEXAMETHASONE SOD PHOSPHATE 10 MG/1 ML VIAL IVPUSH SCH (09:47)
[2020-12-21] MEDS: HEPARIN NA (PORCINE) 5,000 UNITS/ML 1ML VIAL SQ SCH ×2 (09:47→21:17)
[2020-12-21] MEDS: AMINO ACIDS/PROTEIN HYDROLYS 30 ML LIQUID.PKT PO SCH (09:47)
[2020-12-21] MEDS: FAMOTIDINE 20 MG TABLET PO SCH ×2 (09:48→21:17)
[2020-12-21 09:58] LABS: BASO % 0.3 % (0-2.0); HEMATOCRIT 39.1 % (32.4-45.2); HEMOGLOBIN 12.4 GM/dL (10.7-15.3); LYMPH % 9.1 % (8-40); MCH 26.1 pg (25.7-33.7); MCHC 31.8 g/dl (32.0-36.0); MEAN CELL VOLUME 81.8 fl (80-96); MEAN PLT VOLUME 9.9 fl (7.5-11.1); MONO % 10.8 % (3.8-10.2); NEUT % 79.8 % (42.8-82.8); PLATELET COUNT 244 10^3/uL (134-434); RBC 4.78 M/mm3 (3.60-5.2); RDW 14.5 % (11.6-15.6); WHITE BLOOD COUNT 10.6 K/mm3 (4.0-10.0)
[2020-12-21 10:29] LABS: CALCIUM 7.4 mg/dL (8.5-10.1)
[2020-12-21 10:30] LABS: ALBUMIN 1.5 g/dl (3.4-5.0); BLOOD UREA NITROGEN 72.7 mg/dL (7-18)
[2020-12-21 10:33] LABS: CREATININE 3.8 mg/dL (0.55-1.3); PHOSPHOROUS 3.6 mg/dL (2.5-4.9)
[2020-12-21 10:34] LABS: BILIRUBIN,TOTAL 0.2 mg/dL (0.2-1)
[2020-12-21 10:35] LABS: TOT PROT 4.6 g/dl (6.4-8.2)
[2020-12-21 10:37] LABS: ANISOCYTOSIS 2+; MACROCYTOSIS 0; PLATELET ESTIMATE NORMAL
[2020-12-21] MEDS: ACETAMINOPHEN 325 MG TABLET (FP) PO PRN (15:41)
[2020-12-21] MEDS: LACTATED RINGERS SOLUTION 1,000 ML/1,000 ML INFUS.BAG IV SCH (15:45)
[2020-12-21 17:29] LABS: HIV INTERPRETATION NEGATIVE (NEGATIVE)
[2020-12-21 19:23] LABS: EPI CELLS >36 /uL (0-25.1); HYALINE CASTS 0 /uL (0-3.1); PH,URINE 6.5 (5.0-8.0); URINE APPEARANCE CLEAR; URINE BACTERIA 8051 /uL (0-1359); URINE BILIRUBIN NEGATIVE (NEGATIVE); URINE COLOR YELLOW; URINE GLUCOSE (UA) TRACE (NEGATIVE); URINE KETONE NEGATIVE (NEGATIVE); URINE LEUK ESTERASE NEGATIVE (NEGATIVE); URINE NITRITE NEGATIVE (NEGATIVE); URINE PROTEIN 3+ (NEGATIVE); URINE RBC 11 /uL (0-23.9); URINE UROBILINOGEN 0.2 mg/dL (0.2-1.0)
[2020-12-21 20:09] LABS: URINE WBC 84.3 /uL (0-25.8)
[2020-12-21] MEDS: ATORVASTATIN CA 10 MG TABLET (FP) PO SCH (21:17)
[2020-12-22] MEDS: LACTATED RINGERS SOLUTION 1,000 ML/1,000 ML INFUS.BAG IV SCH (00:15)
[2020-12-22 08:00] LABS: BASO % 0.2 % (0-2.0); EOS % 0.1 % (0-4.5); HEMATOCRIT 37.3 % (32.4-45.2); HEMOGLOBIN 12.2 GM/dL (10.7-15.3); LYMPH % 10.6 % (8-40); MCH 26.6 pg (25.7-33.7); MCHC 32.7 g/dl (32.0-36.0); MEAN CELL VOLUME 81.3 fl (80-96); MEAN PLT VOLUME 9.2 fl (7.5-11.1); MONO % 10.9 % (3.8-10.2); NEUT % 78.2 % (42.8-82.8); PLATELET COUNT 247 10^3/uL (134-434); RBC 4.58 M/mm3 (3.60-5.2); RDW 14.9 % (11.6-15.6); WHITE BLOOD COUNT 12.6 K/mm3 (4.0-10.0)
[2020-12-22 08:17] LABS: ALBUMIN 1.6 g/dl (3.4-5.0); BLOOD UREA NITROGEN 69.9 mg/dL (7-18); CALCIUM 7.9 mg/dL (8.5-10.1)
[2020-12-22 08:21] LABS: CREATININE 3.7 mg/dL (0.55-1.3)
[2020-12-22 08:22] LABS: BILIRUBIN,TOTAL 0.2 mg/dL (0.2-1); TOT PROT 4.9 g/dl (6.4-8.2)
[2020-12-22] MEDS: AMINO ACIDS/PROTEIN HYDROLYS 30 ML LIQUID.PKT PO SCH (08:34)
[2020-12-22] MEDS: FAMOTIDINE 20 MG TABLET PO SCH ×2 (10:21→21:43)
[2020-12-22] MEDS: CALCIUM 500MG/VIT-D 200 UNITS COMBO TABLET (FP) PO SCH (10:21)
[2020-12-22] MEDS: HEPARIN NA (PORCINE) 5,000 UNITS/ML 1ML VIAL SQ SCH ×2 (10:21→21:43)
[2020-12-22] MEDS: DEXAMETHASONE SOD PHOSPHATE 10 MG/1 ML VIAL IVPUSH SCH (10:21)
[2020-12-22 10:26] LABS: ANISOCYTOSIS 0; MACROCYTOSIS 2+; OVALOCYTE 1+; PLATELET ESTIMATE NORMAL
[2020-12-22] MEDS: ATORVASTATIN CA 10 MG TABLET (FP) PO SCH (21:43)
[2020-12-23 07:35] VITALS: PULSE 76
[2020-12-23] MEDS: AMINO ACIDS/PROTEIN HYDROLYS 30 ML LIQUID.PKT PO SCH (08:56)
[2020-12-23] MEDS: FAMOTIDINE 20 MG TABLET PO SCH (09:55)
[2020-12-23] MEDS: HEPARIN NA (PORCINE) 5,000 UNITS/ML 1ML VIAL SQ SCH (09:55)
[2020-12-23] MEDS: DEXAMETHASONE SOD PHOSPHATE 10 MG/1 ML VIAL IVPUSH SCH (09:55)
[2020-12-23] MEDS: CALCIUM 500MG/VIT-D 200 UNITS COMBO TABLET (FP) PO SCH (09:55)
[2020-12-23 13:12] VITALS: BP 116/76; TEMP 97.7
== END 2020-12-23 13:41 | disposition home or self-care (01) | DRG 137 ==
LOC: JER 20:14 → JERBED 21:31 → J8W 12-13 01:33
PROVIDERS: ADMIT Internal Medicine
PROC: XW033E5 Introduction of Remdesivir Anti-infective into Peripheral Vein, Percutaneous Approach, New Technology Group 5 (ICD-10-PCS; 2020-12-14)
PROC: 0TB03ZX Excision of Right Kidney, Percutaneous Approach, Diagnostic (ICD-10-PCS; principal; 2020-12-18)
DX: U07.1 COVID-19 (principal); A08.39 Other viral enteritis; J12.82 Pneumonia due to coronavirus disease 2019; E83.51 Hypocalcemia; J96.01 Acute respiratory failure with hypoxia; E66.01 Morbid (severe) obesity due to excess calories; Z68.41 Body mass index [BMI] 40.0-44.9, adult; R79.1 Abnormal coagulation profile; R80.9 Proteinuria, unspecified; N17.9 Acute kidney failure, unspecified; J45.909 Unspecified asthma, uncomplicated; E86.0 Dehydration; R11.2 Nausea with vomiting, unspecified; R94.5 Abnormal results of liver function studies; R10.13 Epigastric pain; E88.09 Other disorders of plasma-protein metabolism, not elsewhere classified; E87.1 Hypo-osmolality and hyponatremia; N05.9 Unspecified nephritic syndrome with unspecified morphologic changes; N26.9 Renal sclerosis, unspecified
CPT/HCPCS: 36415; 50200; 71045-TC-FY; 74176-TC; 76705-TC; 76775-TC; 80048; 80053; 80061; 80074; 81003; 82272; 82436; 82550; 82570; 82962; 83520; 83605; 83690; 83721; 83735; 84100; 84133; 84155; 84156; 84165; 84300; 84484; 84703; 85025; 85027; 85379; 85610; 85730; 86038; 86140; 86160; 86162; 86225; 86256; 86704; 86706; 86707; 86708; 86709; 86769; 86850; 86900; 86901; 87086; 87340; 87389; 87522; 88300-TC; 93005; 93010; 93970-TC; 94010; 94761; 97116-GP; 97161-GP; 99285-25; C9399; C9803; J0131; J1100; J1644; U0003; U0005

== ENCOUNTER 2021-01-31 14:26 | Emergency (ER) | payer OTHER ==
[2021-01-31 14:51] VITALS: TEMP 98.2; BMI 44.1
[2021-01-31 17:54] LABS: BASO % 0.2 % (0-2.0); EOS % 0.1 % (0-4.5); HEMATOCRIT 42.9 % (32.4-45.2); LYMPH % 6.4 % (8-40); MCH 27.5 pg (25.7-33.7); MCHC 32.7 g/dl (32.0-36.0); MEAN PLT VOLUME 9.6 fl (7.5-11.1); MONO % 1.5 % (3.8-10.2); NEUT % 91.8 % (42.8-82.8); PLATELET COUNT 245 10^3/uL (134-434); RDW 17.6 % (11.6-15.6); WHITE BLOOD COUNT 15.4 K/mm3 (4.0-10.0)
[2021-01-31 18:11] LABS: CHLORIDE 101 mmol/L (98-107); SODIUM 137 mmol/L (136-145)
[2021-01-31 18:13] LABS: CALCIUM 8.7 mg/dL (8.5-10.1)
[2021-01-31 18:14] LABS: ANION GAP 11 MMOL/L (8-16); BLOOD UREA NITROGEN 38.6 mg/dL (7-18); CO2 25 mmol/L (21-32); GLUCOSE,RANDOM 215 mg/dL (74-106)
[2021-01-31 18:17] LABS: CREATININE 1.3 mg/dL (0.55-1.3); SGOT/AST 36 U/L (15-37); SGPT/ALT 90 U/L (13-61)
[2021-01-31 18:18] LABS: BILIRUBIN,TOTAL < 0.1 mg/dL (0.2-1)
[2021-01-31 18:19] LABS: TOT PROT 5.7 g/dl (6.4-8.2)
[2021-01-31] MEDS ORDERED: SODIUM CHLORIDE 0.9% 500 ML INFUS.BAG IV ONE ×2 (18:19→19:54)
[2021-01-31 18:20] LABS: ALK PHOS 81 U/L (45-117)
[2021-01-31 18:33] LABS: ANISOCYTOSIS 2+; MACROCYTOSIS 0; PLATELET ESTIMATE NORMAL
[2021-01-31] MEDS ORDERED: SODIUM CHLORIDE 1,000 ML IV SCH (19:30)
[2021-01-31 22:31] VITALS: BP 137/80; PULSE 99
== END 2021-01-31 22:30 | disposition home or self-care (01) ==
LOC: JER 14:26
DX: R07.9 Chest pain, unspecified (principal)
CPT/HCPCS: 36415; 71275-TC; 80053; 84484; 84703; 85025; 93005; 93010; 99285-25; Q9967

== ENCOUNTER → 2021-07-04 | Day surgery (SDC) | payer OTHER | END | disposition home or self-care (01) | LOC: JRADIR 10:35 | PROVIDERS: ATTEND Internal Medicine Endocrinology, Diabetes & Metabolism | PROC: 0G9K3ZX Drainage of Thyroid Gland, Percutaneous Approach, Diagnostic (ICD-10-PCS; principal; 2021-07-04) | DX: E04.1 Nontoxic single thyroid nodule (principal) | CPT/HCPCS: 10005; 76942; 88173; 88305-TC ==

== ENCOUNTER 2022-01-10 00:05 | Emergency (ER) | payer OTHER ==
[2022-01-10 00:14] VITALS: BP 136/84; PULSE 87; TEMP 98.6; BMI 45.9
[2022-01-10] MEDS ORDERED: FAMOTIDINE 20 MG/50 ML IVPB 20 MG/50 ML MG IVPB ONE ×2 (00:34→00:39)
[2022-01-10 01:44] LABS: BASO % 0.6 % (0-2.0); EOS % 3.4 % (0-4.5); HEMATOCRIT 40.8 % (32.4-45.2); HEMOGLOBIN 13.1 GM/dL (10.7-15.3); LYMPH % 24.2 % (8-40); MCH 25.7 pg (25.7-33.7); MCHC 32.1 g/dl (32.0-36.0); MEAN CELL VOLUME 80.1 fl (80-96); MEAN PLT VOLUME 9.4 fl (7.5-11.1); MONO % 6.4 % (3.8-10.2); NEUT % 65.4 % (42.8-82.8); PLATELET COUNT 270 10^3/uL (134-434); RDW 15.8 % (11.6-15.6); WHITE BLOOD COUNT 9.4 K/mm3 (4.0-10.0)
[2022-01-10 01:49] LABS: EPI CELLS >36 /uL (0-25.1); HCG,QUALITATIVE URINE Negative; HYALINE CASTS 1 /uL (0-3.1); URINE APPEARANCE CLEAR; URINE BACTERIA 533 /uL (0-1359); URINE BILIRUBIN NEGATIVE (NEGATIVE); URINE COLOR YELLOW; URINE GLUCOSE (UA) NEGATIVE (NEGATIVE); URINE KETONE NEGATIVE (NEGATIVE); URINE LEUK ESTERASE NEGATIVE (NEGATIVE); URINE NITRITE NEGATIVE (NEGATIVE); URINE PROTEIN 4+ (NEGATIVE); URINE RBC 20 /uL (0-23.9); URINE UROBILINOGEN 0.2 mg/dL (0.2-1.0); URINE WBC 46 /uL (0-25.8)
[2022-01-10 02:13] LABS: CALCIUM 9.3 mg/dL (8.5-10.1)
[2022-01-10 02:14] LABS: BLOOD UREA NITROGEN 23.3 mg/dL (7-18)
[2022-01-10 02:16] LABS: CREATININE 1.3 mg/dL (0.55-1.3)
[2022-01-10 02:18] LABS: BILIRUBIN,TOTAL 0.2 mg/dL (0.2-1); TOT PROT 7.2 g/dl (6.4-8.2)
== END 2022-01-10 02:49 | disposition home or self-care (01) ==
LOC: FER 00:05
PROC: 3E033NZ Introduction of Analgesics, Hypnotics, Sedatives into Peripheral Vein, Percutaneous Approach (ICD-10-PCS; principal; 2022-01-10)
DX: K29.00 Acute gastritis without bleeding (principal)
CPT/HCPCS: 36415; 80053; 81003; 81025; 83690; 84703; 85025; 99284-25

== ENCOUNTER 2022-12-16 19:32 | Emergency (ER) | payer OTHER ==
[2022-12-16 19:37] VITALS: BP 153/89; PULSE 85; RESP 17; TEMP 98.3; BMI 43.0
[2022-12-16] MEDS ORDERED: KETOROLAC TROMETHAMINE 30 MG/1 ML VIAL IM ONE (20:34)
[2022-12-16] MEDS ORDERED: ACETAMINOPHEN 500 MG TABLET (FP) PO ONE (20:34)
[2022-12-16] MEDS ORDERED: CYCLOBENZAPRINE HCL 10 MG TABLET (FP) PO ONE (20:34)
[2022-12-16] MEDS ORDERED: LIDOCAINE 5% TOPICAL PATCH TP ONE (20:34)
[2022-12-16] MEDS ORDERED: LIDOCAINE 5% TOPICAL PATCH ONE (20:37)
[2022-12-16] MEDS ORDERED: CYCLOBENZAPRINE HCL 10 MG TABLET (FP) ONE (20:37)
[2022-12-16] MEDS ORDERED: KETOROLAC TROMETHAMINE 30 MG/1 ML VIAL ONE (20:37)
[2022-12-16] MEDS ORDERED: ACETAMINOPHEN 500 MG TABLET (FP) ONE (20:38)
[2022-12-16] MEDS ORDERED: LIDOCAINE PATCH REMOVAL MC ONE (22:00)
== END 2022-12-16 22:40 | disposition home or self-care (01) ==
LOC: JERFT 19:32
PROC: 3E0233Z Introduction of Anti-inflammatory into Muscle, Percutaneous Approach (ICD-10-PCS; principal; 2022-12-16)
DX: M54.2 Cervicalgia (principal); M54.6 Pain in thoracic spine; R07.2 Precordial pain; V49.50XA Passenger injured in collision with unspecified motor vehicles in traffic accident, initial encounter; Y92.410 Unspecified street and highway as the place of occurrence of the external cause
CPT/HCPCS: 71046-TC-FY; 72100-TC-FY; 72125-TC; 99284-25

== ENCOUNTER 2023-07-21 11:18 | Emergency (ER) | payer OTHER ==
[2023-07-21 11:22] VITALS: BP 139/85; PULSE 80; RESP 20; TEMP 97.7; BMI 47.3
[2023-07-21] MEDS ORDERED: ALBUTEROL SO4 2.5/IPRATROPIUM 0.5 INH SOL 3 ML VIAL.NEB. NEB ONE ×2 (11:31→11:32)
[2023-07-21] MEDS ORDERED: ACETAMINOPHEN 325 MG TABLET (FP) PO ONE (11:31)
[2023-07-21] MEDS ORDERED: ACETAMINOPHEN 325 MG TABLET (FP) ONE (11:32)
[2023-07-21] MEDS ORDERED: predniSONE 20 MG TABLET (UD) PO ONE (11:48)
[2023-07-21] MEDS ORDERED: predniSONE 20 MG TABLET (UD) ONE (11:55)
== END 2023-07-21 12:53 | disposition home or self-care (01) ==
LOC: FER 11:18
PROC: 3E0F7GC Introduction of Other Therapeutic Substance into Respiratory Tract, Via Natural or Artificial Opening (ICD-10-PCS; principal; 2023-07-21)
DX: R05.9 Cough, unspecified (principal); R09.81 Nasal congestion; R09.89 Other specified symptoms and signs involving the circulatory and respiratory systems; R51.9 Headache, unspecified; R50.9 Fever, unspecified; R09.3 Abnormal sputum; R19.7 Diarrhea, unspecified; J06.9 Acute upper respiratory infection, unspecified; B97.89 Other viral agents as the cause of diseases classified elsewhere; J10.1 Influenza due to other identified influenza virus with other respiratory manifestations; Z20.822 Contact with and (suspected) exposure to COVID-19
CPT/HCPCS: 0241U-QW; 99283-25

== ENCOUNTER 2024-02-19 13:41 | Emergency (ER) | payer OTHER ==
[2024-02-19 14:16] VITALS: BP 154/102; PULSE 71; RESP 16; TEMP 98.3; BMI 51.6
[2024-02-19 15:03] LABS: HCG,QUALITATIVE URINE Negative
[2024-02-19] MEDS ORDERED: ACETAMINOPHEN 325 MG TABLET (FP) ONE (15:23)
[2024-02-19] MEDS ORDERED: METHOCARBAMOL 500 MG TABLET ONE (15:24)
[2024-02-19 15:30] LABS: EPITHELIAL CELLS 0-5 /hpf
[2024-02-19] MEDS: ACETAMINOPHEN 325 MG TABLET (FP) PO ONE (15:41)
[2024-02-19] MEDS: METHOCARBAMOL 500 MG TABLET PO ONE (15:41)
== END 2024-02-19 17:26 | disposition home or self-care (01) ==
LOC: FER 13:41
DX: M54.50 Low back pain, unspecified (principal); G89.29 Other chronic pain; R10.31 Right lower quadrant pain; R10.32 Left lower quadrant pain; I10 Essential (primary) hypertension
CPT/HCPCS: 72100-TC-FY; 72170-TC-FY; 81003; 81015; 84703; 87086; 99284-25

== ENCOUNTER 2024-03-11 13:30 | Emergency (ER) | payer OTHER ==
[2024-03-11 13:40] VITALS: BP 157/100; PULSE 75; RESP 19; TEMP 97.8; BMI 51.7
[2024-03-11] MEDS ORDERED: diazePAM 5 MG TABLET ONE (15:34)
[2024-03-11] MEDS: diazePAM 5 MG TABLET PO ONE (15:36)
[2024-03-11 15:37] LABS: POTASSIUM 4.5 mmol/L (3.5-5.1)
[2024-03-11 15:38] LABS: CALCIUM 9.7 mg/dL (8.5-10.1)
[2024-03-11 15:39] LABS: BLOOD UREA NITROGEN 29.8 mg/dL (7-18)
[2024-03-11 15:42] LABS: CREATININE 1.6 mg/dL (0.55-1.3)
[2024-03-11] MEDS ORDERED: KETOROLAC TROMETHAMINE 15 MG/ML VIAL ONE (16:16)
[2024-03-11] MEDS: KETOROLAC TROMETHAMINE 15 MG/ML VIAL IM ONE (16:25)
== END 2024-03-11 16:45 | disposition home or self-care (01) ==
LOC: JER 13:30
PROC: 3E0133Z Introduction of Anti-inflammatory into Subcutaneous Tissue, Percutaneous Approach (ICD-10-PCS; principal; 2024-03-11)
DX: M79.604 Pain in right leg (principal); M79.605 Pain in left leg
CPT/HCPCS: 36415; 80048; 99284-25

== ENCOUNTER 2024-07-15 04:50 | Day surgery (SDC) | payer OTHER ==
[2024-07-14 08:29] VITALS: BMI 46.0
[2024-07-15] MEDS: IOHEXOL 180 MG/1 ML ML IJ ONE
[2024-07-15] MEDS ORDERED: ACETAMINOPHEN 500 MG TABLET (FP) PO PRN (08:51)
[2024-07-15 13:10] VITALS: RESP 16
[2024-07-15] MEDS: LIDOCAINE HCL 1% PRESERVATIVE FREE - 30ML VIAL IJ ONE ×2 (14:29)
[2024-07-15] MEDS: BUPIVACAINE HCL/PF 0.5% (5MG/ML) 10 ML VIAL IJ ONE ×3 (14:31)
[2024-07-15] MEDS: TRIAMCINOLONE ACET 40MG/1ML VIAL IM ONE ×2 (14:31)
[2024-07-15 14:46] VITALS: BP 129/69; PULSE 73; TEMP 97.8
== END 2024-07-15 15:01 | disposition home or self-care (01) ==
LOC: JASU-SURG 04:50
PROVIDERS: ATTEND Pain Medicine Pain Medicine
PROC: 3E0U3BZ Introduction of Anesthetic Agent into Joints, Percutaneous Approach (ICD-10-PCS; 2024-07-15)
PROC: 3E0U33Z Introduction of Anti-inflammatory into Joints, Percutaneous Approach (ICD-10-PCS; principal; 2024-07-15 14:00)
DX: M16.11 Unilateral primary osteoarthritis, right hip (principal)
CPT/HCPCS: 76000-TC-FY; 81025

== ENCOUNTER 2024-11-01 21:03 | Emergency (ER) | payer OTHER ==
[2024-11-01 21:12] VITALS: BP 136/100; PULSE 76; RESP 20; TEMP 98.1; BMI 44.6
[2024-11-01] MEDS: ALBUTEROL SO4 2.5/IPRATROPIUM 0.5 INH SOL 3 ML VIAL.NEB. NEB ONE ×2 (21:57→22:10)
[2024-11-01] MEDS ORDERED: predniSONE 20 MG TABLET (UD) ONE (22:32)
[2024-11-01] MEDS ORDERED: AMOXICILLIN 250 MG CAPSULE ONE (22:32)
[2024-11-01] MEDS ORDERED: predniSONE 10 MG TABLET (UD) ONE (22:33)
[2024-11-01] MEDS: predniSONE 10 MG TABLET (UD) PO ONE (22:34)
[2024-11-01] MEDS: AMOXICILLIN 250 MG CAPSULE PO ONE (22:34)
== END 2024-11-01 22:37 | disposition home or self-care (01) ==
LOC: FER 21:03
PROC: 3E0F7GC Introduction of Other Therapeutic Substance into Respiratory Tract, Via Natural or Artificial Opening (ICD-10-PCS; principal; 2024-11-01)
PROC: 3E0F7GC Introduction of Other Therapeutic Substance into Respiratory Tract, Via Natural or Artificial Opening (ICD-10-PCS; 2024-11-01)
DX: J45.909 Unspecified asthma, uncomplicated (principal)
CPT/HCPCS: 0241U-QW; 94640; 99284-25